=== PATIENT | female | born 1935 | race Caucasian/White ===

== ENCOUNTER 2018-01-21 22:30 | Inpatient (IN) ==
[2018-01-21] MEDS ORDERED: ONDANSETRON 4 MG/2 ML VIAL ONE (23:08)
[2018-01-21] MEDS ORDERED: ONDANSETRON 4 MG/2 ML VIAL IV STA (23:17)
[2018-01-21] MEDS ORDERED: SODIUM CHLORIDE 0.9% 1,000 ML IV STA (23:54)
[2018-01-21] MEDS ORDERED: PANTOPRAZOLE 40 MG VIAL IV STA (23:55)
[2018-01-22 00:15] LABS: Partial Thromboplastin Time 32.9 SECS (0-40)
[2018-01-22 00:17] LABS: Alanine Aminotransferase 18 U/L (13-56); Albumin 2.8 G/DL (3.4-5.0); Alkaline Phosphatase 51 U/L (45-117); Aspartate Amino Transferase 13 U/L (0-37); Bilirubin,Total < 0.39 MG/DL (0.2-1.0); Blood Urea Nitrogen 102 MG/DL (7-18); Glucose 214 MG/DL (74-106); Osmolality,Calculated 320.1 MOS/KG (273-304); Potassium 4.7 MMOL/L (3.5-5.1); Sodium 142 MMOL/L (136-145); Total Protein 6.3 G/DL (6.4-8.3)
[2018-01-22 00:20] LABS: INR 3.4
[2018-01-22 00:21] LABS: PT Patient Result 33.9 SECS
[2018-01-22 00:58] LABS: Basophils # 0.1 10*3/uL (0.0-0.2); Basophils % 0.6 % (0.0-0.8); Eosinophils # 0.1 10*3/uL (0.0-0.87); Eosinophils % 0.4 % (0.00-10.9); Hematocrit 27.1 VOL% (35.7-47.0); Hemoglobin 9.5 GM/DL (12.0-16.0); Immature Granulocytes % 0.7 %; Immature Granulocytes Absolute 0.14 #; Lymphocytes # 6.1 10*3/uL (1.4-4.0); Lymphocytes % 32.2 % (21.3-54.2); Mean Corpuscular HGB Conc 35.1 GM/DL (32-36); Mean Corpuscular Hemoglobin 35 PG (27-34); Mean Corpuscular Volume 101.1 FL (87-102); Mean Platelet Volume 12.8 FL (9.6-12.0); Monocytes # 1.6 10*3/uL (0.11-0.8); Monocytes % 8.3 % (1.7-12.7); Neutrophils % 57.8 % (38.7-73.9); Platelet Count 225 T/CUMM (130-400); Red Blood Count 2.68 MC/CUMM (3.8-5.5)
[2018-01-22 01:51] LABS: Apearance,Urine Slightly Hazy (Clear); Bacteria,Urine Moderate /HPF (Few); Bilirubin,Urine Negative (Negative); Blood, Urine Small mg/dL (Negative); Glucose,Urine (UA) Negative (Negative); Ketones,Urine Negative (Negative); Mucus,Urine Occasional /LPF (Occasional); Nitrite,Urine Negative (Negative); Protein,Urine Negative; RBC,Urine 2 /HPF (0-4); Squamous Epithelial Cell,Urine Occasional /HPF (0-10); Urine Color Yellow (Yellow); Urine Specific Gravity 1.012 (1.001-1.035); Urine Urobilinogen < 2.0 EU/DL (0.2-1.0); WBC,Urine 33 /HPF (0-6)
[2018-01-22] MEDS ORDERED: ACETAMINOPHEN 325 MG TABLET PO PRN (03:18)
[2018-01-22] MEDS ORDERED: ONDANSETRON 4 MG/2 ML VIAL IV PRN (03:18)
[2018-01-22] MEDS ORDERED: ALBUTEROL 2.5 MG/3 ML NEB RESP TX PRN (03:18)
[2018-01-22] MEDS ORDERED: INSULIN ASPART PROTAMINE/ASPART 70/30 100 UNIT/ML SUBCUT PRN (03:24)
[2018-01-22] MEDS ORDERED: DEXTROSE 50% 25 GM/50 ML VIAL IV PRN (03:26)
[2018-01-22] MEDS ORDERED: GLUCAGON 1 MG VIAL IM PRN (04:20)
[2018-01-22] MEDS: PANTOPRAZOLE INJ 200 MG in SODIUM CHLORIDE 0.9% 250 ML IV SCH (04:33)
[2018-01-22] MEDS: cefTRIAXone 1,000 MG in SYRINGE 1 EACH IV SCH (04:43)
[2018-01-22 04:58] LABS: Basophils # 0.1 10*3/uL (0.0-0.2); Basophils % 0.4 % (0.0-0.8); Hemoglobin 8.6 GM/DL (12.0-16.0); Immature Granulocytes % 0.6 %; Immature Granulocytes Absolute 0.09 #; Lymphocytes # 2.7 10*3/uL (1.4-4.0); Lymphocytes % 18.2 % (21.3-54.2); Mean Corpuscular HGB Conc 34.4 GM/DL (32-36); Mean Corpuscular Hemoglobin 35 PG (27-34); Mean Corpuscular Volume 100.4 FL (87-102); Mean Platelet Volume 11.8 FL (9.6-12.0); Monocytes # 0.7 10*3/uL (0.11-0.8); Monocytes % 4.8 % (1.7-12.7); Neutrophils # 11.2 10*3/uL (1.4-7.4); Platelet Count 196 T/CUMM (130-400); Red Blood Count 2.49 MC/CUMM (3.8-5.5); White Blood Count 14.7 T/CUMM (4-12)
[2018-01-22 05:10] LABS: Calcium 8.9 MG/DL (8.5-10.1); Osmolality,Calculated 325.8 MOS/KG (273-304)
[2018-01-22 05:16] LABS: Lactic Acid 2.1 MMOL/L (0.4-2.0)
[2018-01-22] MEDS: INSULIN LISPRO 100 UNIT/ML SUBCUT SCH ×3 (06:15→19:01)
[2018-01-22 09:35] LABS: Hematocrit 23.7 VOL% (35.7-47.0); Hemoglobin 8.2 GM/DL (12.0-16.0)
[2018-01-22 13:01] LABS: Hematocrit 22.5 VOL% (35.7-47.0); Hemoglobin 7.7 GM/DL (12.0-16.0)
[2018-01-22 13:12] LABS: INR 2.9
[2018-01-22 13:14] LABS: PT Patient Result 29.1 SECS
[2018-01-22] MEDS: LISINOPRIL 5 MG TABLET PO SCH (19:02)
[2018-01-22] MEDS: INSULIN ASPART PROTAMINE/ASPART 70/30 100 UNIT/ML SUBCUT SCH ×2 (19:03→19:04)
[2018-01-22] MEDS ORDERED: ATORVASTATIN 20 MG TABLET PO SCH (21:00)
[2018-01-22] MEDS ORDERED: MAGNESIUM OXIDE 400 MG TABLET PO SCH (21:00)
[2018-01-22] MEDS ORDERED: AMITRIPTYLINE 25 MG TABLET PO SCH (21:00)
[2018-01-22] MEDS ORDERED: INSULIN GLARGINE 100 UNIT/ML SUBCUT SCH (21:00)
[2018-01-22] MEDS ORDERED: MULTIVITAMIN (CENTRUM) TABLET PO SCH (21:00)
[2018-01-22 22:00] LABS: Hematocrit 21.6 VOL% (35.7-47.0); Hemoglobin 7.5 GM/DL (12.0-16.0)
[2018-01-23] MEDS: INSULIN LISPRO 100 UNIT/ML SUBCUT SCH ×5 (00:02→20:24)
[2018-01-23 05:08] LABS: Basophils # 0.1 10*3/uL (0.0-0.2); Basophils % 0.6 % (0.0-0.8); Eosinophils # 0.4 10*3/uL (0.0-0.87); Hematocrit 21.1 VOL% (35.7-47.0); Hemoglobin 7.2 GM/DL (12.0-16.0); Immature Granulocytes % 0.5 %; Immature Granulocytes Absolute 0.07 #; Lymphocytes # 3.5 10*3/uL (1.4-4.0); Lymphocytes % 25.1 % (21.3-54.2); Mean Corpuscular HGB Conc 34.1 GM/DL (32-36); Mean Corpuscular Hemoglobin 35 PG (27-34); Mean Corpuscular Volume 102.4 FL (87-102); Mean Platelet Volume 12.1 FL (9.6-12.0); Monocytes # 1.3 10*3/uL (0.11-0.8); Monocytes % 9.5 % (1.7-12.7); Neutrophils # 8.5 10*3/uL (1.4-7.4); Neutrophils % 61.3 % (38.7-73.9); Platelet Count 166 T/CUMM (130-400); Red Blood Count 2.06 MC/CUMM (3.8-5.5); Red Cell Distribution Width 13.3 % (9.3-17.3); White Blood Count 13.8 T/CUMM (4-12)
[2018-01-23] MEDS: cefTRIAXone 1,000 MG in SYRINGE 1 EACH IV SCH (05:11)
[2018-01-23] MEDS: PANTOPRAZOLE INJ 200 MG in SODIUM CHLORIDE 0.9% 250 ML IV SCH ×2 (05:14→16:42)
[2018-01-23 05:16] LABS: Osmolality,Calculated 310.6 MOS/KG (273-304); Potassium 4.2 MMOL/L (3.5-5.1)
[2018-01-23 05:17] LABS: INR 2.8
[2018-01-23 05:19] LABS: PT Patient Result 28.1 SECS
[2018-01-23] MEDS ORDERED: GLUCAGON 1 MG VIAL IM PRN ×2 (08:14→14:58)
[2018-01-23] MEDS ORDERED: DEXTROSE 50% 25 GM/50 ML VIAL IV PRN ×2 (08:14→14:58)
[2018-01-23] MEDS: INSULIN ASPART PROTAMINE/ASPART 70/30 100 UNIT/ML SUBCUT SCH ×2 (09:34→16:56)
[2018-01-23] MEDS: LISINOPRIL 5 MG TABLET PO SCH (09:34)
[2018-01-23] MEDS ORDERED: SODIUM CHLORIDE 0.9% 1,000 ML IV PRN (10:13)
[2018-01-23] MEDS ORDERED: ALBUTEROL 2.5 MG/3 ML NEB RESP TX PRN (14:48)
[2018-01-23] MEDS ORDERED: ACETAMINOPHEN 325 MG TABLET PO PRN (14:49)
[2018-01-23] MEDS ORDERED: ONDANSETRON 4 MG/2 ML VIAL IV PRN (14:55)
[2018-01-23] MEDS: MAGNESIUM OXIDE 400 MG TABLET PO SCH (20:23)
[2018-01-23] MEDS: ATORVASTATIN 10 MG TABLET PO SCH (20:23)
[2018-01-23] MEDS: INSULIN GLARGINE 100 UNIT/ML SUBCUT SCH (20:23)
[2018-01-23] MEDS: AMITRIPTYLINE 25 MG TABLET PO SCH (20:23)
[2018-01-24] MEDS: cefTRIAXone 1,000 MG in SYRINGE 1 EACH IV SCH (03:35)
[2018-01-24 03:48] LABS: Basophils # 0.1 10*3/uL (0.0-0.2); Basophils % 0.7 % (0.0-0.8); Eosinophils # 0.4 10*3/uL (0.0-0.87); Eosinophils % 3.5 % (0.00-10.9); Hematocrit 31.1 VOL% (35.7-47.0); Hemoglobin 10.4 GM/DL (12.0-16.0); Immature Granulocytes % 0.5 %; Immature Granulocytes Absolute 0.06 #; Lymphocytes # 2.3 10*3/uL (1.4-4.0); Lymphocytes % 18.7 % (21.3-54.2); Mean Corpuscular HGB Conc 33.4 GM/DL (32-36); Mean Corpuscular Hemoglobin 33 PG (27-34); Monocytes # 1.2 10*3/uL (0.11-0.8); Monocytes % 10.1 % (1.7-12.7); Neutrophils # 8.1 10*3/uL (1.4-7.4); Neutrophils % 66.5 % (38.7-73.9); Platelet Count 153 T/CUMM (130-400); Red Blood Count 3.11 MC/CUMM (3.8-5.5); Red Cell Distribution Width 15.5 % (9.3-17.3); White Blood Count 12.2 T/CUMM (4-12)
[2018-01-24 03:50] LABS: Hematocrit 30.3 VOL% (35.7-47.0); Hemoglobin 10.5 GM/DL (12.0-16.0)
[2018-01-24 03:51] LABS: INR 1.9; PT Patient Result 19.4 SECS
[2018-01-24 04:01] LABS: Calcium 8.3 MG/DL (8.5-10.1); Osmolality,Calculated 302.8 MOS/KG (273-304); Potassium 4.4 MMOL/L (3.5-5.1)
[2018-01-24] MEDS: INSULIN LISPRO 100 UNIT/ML SUBCUT SCH ×4 (08:10→20:17)
[2018-01-24] MEDS: INSULIN ASPART PROTAMINE/ASPART 70/30 100 UNIT/ML SUBCUT SCH ×2 (09:22→17:35)
[2018-01-24] MEDS: LISINOPRIL 5 MG TABLET PO SCH (09:22)
[2018-01-24] MEDS: MULTIVITAMIN (CENTRUM) TABLET PO SCH (09:23)
[2018-01-24] MEDS: PANTOPRAZOLE INJ 200 MG in SODIUM CHLORIDE 0.9% 250 ML IV SCH (17:48)
[2018-01-24] MEDS: INSULIN GLARGINE 100 UNIT/ML SUBCUT SCH (20:18)
[2018-01-24] MEDS: MAGNESIUM OXIDE 400 MG TABLET PO SCH (20:19)
[2018-01-24] MEDS: AMITRIPTYLINE 25 MG TABLET PO SCH (20:19)
[2018-01-24] MEDS: ATORVASTATIN 10 MG TABLET PO SCH (20:19)
[2018-01-25] MEDS: cefTRIAXone 1,000 MG in SYRINGE 1 EACH IV SCH (03:35)
[2018-01-25 03:43] LABS: Basophils # 0.1 10*3/uL (0.0-0.2); Basophils % 0.6 % (0.0-0.8); Eosinophils # 0.4 10*3/uL (0.0-0.87); Eosinophils % 4.5 % (0.00-10.9); Hematocrit 29.3 VOL% (35.7-47.0); Hemoglobin 9.8 GM/DL (12.0-16.0); Immature Granulocytes % 0.5 %; Immature Granulocytes Absolute 0.05 #; Lymphocytes # 2.4 10*3/uL (1.4-4.0); Lymphocytes % 24.3 % (21.3-54.2); Mean Corpuscular HGB Conc 33.4 GM/DL (32-36); Mean Corpuscular Hemoglobin 33 PG (27-34); Mean Platelet Volume 12.3 FL (9.6-12.0); Monocytes # 1.3 10*3/uL (0.11-0.8); Monocytes % 13.4 % (1.7-12.7); Neutrophils # 5.5 10*3/uL (1.4-7.4); Neutrophils % 56.7 % (38.7-73.9); Platelet Count 149 T/CUMM (130-400); Red Blood Count 2.93 MC/CUMM (3.8-5.5); Red Cell Distribution Width 15.4 % (9.3-17.3); White Blood Count 9.7 T/CUMM (4-12)
[2018-01-25 04:08] LABS: Calcium 8.2 MG/DL (8.5-10.1); Potassium 4.1 MMOL/L (3.5-5.1)
[2018-01-25 08:32] LABS: INR 1.2; PT Patient Result 12.7 SECS
[2018-01-25] MEDS: LISINOPRIL 5 MG TABLET PO SCH (09:20)
[2018-01-25] MEDS: SODIUM CHLORIDE 0.9% 1,000 ML IV SCH (09:20)
[2018-01-25] MEDS: INSULIN LISPRO 100 UNIT/ML SUBCUT SCH ×4 (09:21→20:41)
[2018-01-25] MEDS: INSULIN ASPART PROTAMINE/ASPART 70/30 100 UNIT/ML SUBCUT SCH ×2 (09:21→17:03)
[2018-01-25] MEDS: MULTIVITAMIN (CENTRUM) TABLET PO SCH (09:21)
[2018-01-25] MEDS: AMITRIPTYLINE 25 MG TABLET PO SCH (20:01)
[2018-01-25] MEDS: INSULIN GLARGINE 100 UNIT/ML SUBCUT SCH (20:01)
[2018-01-25] MEDS: ATORVASTATIN 10 MG TABLET PO SCH (20:01)
[2018-01-25] MEDS: MAGNESIUM OXIDE 400 MG TABLET PO SCH (20:01)
[2018-01-25] MEDS: PANTOPRAZOLE 40 MG TABLET PO SCH (20:41)
[2018-01-25] MEDS ORDERED: PANTOPRAZOLE 40 MG VIAL IV SCH (21:00)
[2018-01-26] MEDS: cefTRIAXone 1,000 MG in SYRINGE 1 EACH IV SCH (03:18)
[2018-01-26 07:22] LABS: Basophils # 0.1 10*3/uL (0.0-0.2); Basophils % 0.7 % (0.0-0.8); Eosinophils # 0.4 10*3/uL (0.0-0.87); Eosinophils % 3.8 % (0.00-10.9); Hematocrit 27.1 VOL% (35.7-47.0); Hemoglobin 9.6 GM/DL (12.0-16.0); Immature Granulocytes % 0.5 %; Immature Granulocytes Absolute 0.05 #; Lymphocytes # 2.3 10*3/uL (1.4-4.0); Lymphocytes % 21.8 % (21.3-54.2); Mean Corpuscular HGB Conc 35.4 GM/DL (32-36); Mean Corpuscular Hemoglobin 35 PG (27-34); Mean Corpuscular Volume 97.5 FL (87-102); Mean Platelet Volume 12.5 FL (9.6-12.0); Monocytes # 1.5 10*3/uL (0.11-0.8); Monocytes % 14.1 % (1.7-12.7); Neutrophils # 6.2 10*3/uL (1.4-7.4); Neutrophils % 59.1 % (38.7-73.9); Platelet Count 171 T/CUMM (130-400); Red Blood Count 2.78 MC/CUMM (3.8-5.5); Red Cell Distribution Width 15.4 % (9.3-17.3); White Blood Count 10.5 T/CUMM (4-12)
[2018-01-26 07:58] LABS: Calcium 7.7 MG/DL (8.5-10.1); Osmolality,Calculated 292.7 MOS/KG (273-304); Potassium 4.1 MMOL/L (3.5-5.1)
[2018-01-26] MEDS ORDERED: PROPOFOL 200 MG/20 ML VIAL IV ONE ×2 (10:00)
[2018-01-26] MEDS ORDERED: LIDOCAINE 2% 5 ML VIAL ONE ×2 (10:00)
[2018-01-26] MEDS: INSULIN LISPRO 100 UNIT/ML SUBCUT SCH ×4 (10:55→22:13)
[2018-01-26] MEDS: INSULIN ASPART PROTAMINE/ASPART 70/30 100 UNIT/ML SUBCUT SCH ×2 (10:55→18:53)
[2018-01-26] MEDS: MULTIVITAMIN (CENTRUM) TABLET PO SCH (10:55)
[2018-01-26] MEDS: PANTOPRAZOLE 40 MG TABLET PO SCH ×2 (10:56→22:12)
[2018-01-26] MEDS: LISINOPRIL 5 MG TABLET PO SCH (10:56)
[2018-01-26] MEDS: SODIUM CHLORIDE 0.9% 1,000 ML IV SCH ×2 (13:31→22:14)
[2018-01-26 17:29] LABS: PT Patient Result 10.7 SECS
[2018-01-26] MEDS: WARFARIN 2.5 MG TABLET PO SCH (19:32)
[2018-01-26] MEDS: ENOXAPARIN 80 MG/0.8 ML SYRINGE SUBCUT SCH (19:32)
[2018-01-26] MEDS ORDERED: PANTOPRAZOLE 40 MG VIAL IV SCH (21:00)
[2018-01-26] MEDS: MAGNESIUM OXIDE 400 MG TABLET PO SCH (22:11)
[2018-01-26] MEDS: ATORVASTATIN 10 MG TABLET PO SCH (22:11)
[2018-01-26] MEDS: AMITRIPTYLINE 25 MG TABLET PO SCH (22:11)
[2018-01-26] MEDS: INSULIN GLARGINE 100 UNIT/ML SUBCUT SCH (22:12)
[2018-01-27] MEDS: cefTRIAXone 1,000 MG in SYRINGE 1 EACH IV SCH (03:41)
[2018-01-27] MEDS: SODIUM CHLORIDE 0.9% 1,000 ML IV SCH ×3 (03:41→23:51)
[2018-01-27 06:35] LABS: INR 1.1; PT Patient Result 11.4 SECS
[2018-01-27] MEDS: INSULIN LISPRO 100 UNIT/ML SUBCUT SCH ×4 (09:08→22:19)
[2018-01-27] MEDS: INSULIN ASPART PROTAMINE/ASPART 70/30 100 UNIT/ML SUBCUT SCH ×2 (09:08→19:01)
[2018-01-27] MEDS: MULTIVITAMIN (CENTRUM) TABLET PO SCH (09:32)
[2018-01-27] MEDS: LISINOPRIL 5 MG TABLET PO SCH (09:32)
[2018-01-27] MEDS: PANTOPRAZOLE 40 MG TABLET PO SCH ×2 (09:32→21:37)
[2018-01-27] MEDS: ENOXAPARIN 80 MG/0.8 ML SYRINGE SUBCUT SCH (18:16)
[2018-01-27] MEDS: WARFARIN 2.5 MG TABLET PO SCH (18:17)
[2018-01-27] MEDS: MAGNESIUM OXIDE 400 MG TABLET PO SCH (21:37)
[2018-01-27] MEDS: AMITRIPTYLINE 25 MG TABLET PO SCH (21:37)
[2018-01-27] MEDS: ATORVASTATIN 10 MG TABLET PO SCH (21:37)
[2018-01-27] MEDS: INSULIN GLARGINE 100 UNIT/ML SUBCUT SCH (21:46)
[2018-01-28] MEDS: cefTRIAXone 1,000 MG in SYRINGE 1 EACH IV SCH (04:51)
[2018-01-28 06:56] LABS: Basophils # 0.1 10*3/uL (0.0-0.2); Basophils % 0.9 % (0.0-0.8); Eosinophils # 0.4 10*3/uL (0.0-0.87); Hemoglobin 8.1 GM/DL (12.0-16.0); Immature Granulocytes % 0.5 %; Immature Granulocytes Absolute 0.03 #; Lymphocytes # 1.6 10*3/uL (1.4-4.0); Lymphocytes % 23.9 % (21.3-54.2); Mean Corpuscular HGB Conc 33.8 GM/DL (32-36); Mean Corpuscular Hemoglobin 34 PG (27-34); Mean Corpuscular Volume 100.8 FL (87-102); Mean Platelet Volume 11.7 FL (9.6-12.0); Monocytes # 0.9 10*3/uL (0.11-0.8); Monocytes % 13.6 % (1.7-12.7); Neutrophils # 3.6 10*3/uL (1.4-7.4); Neutrophils % 55.1 % (38.7-73.9); Platelet Count 162 T/CUMM (130-400); Red Blood Count 2.38 MC/CUMM (3.8-5.5); White Blood Count 6.5 T/CUMM (4-12)
[2018-01-28 07:17] LABS: INR 1.2; PT Patient Result 12.4 SECS
[2018-01-28 07:21] LABS: Calcium 6.6 MG/DL (8.5-10.1); Osmolality,Calculated 301.9 MOS/KG (273-304); Potassium 3.5 MMOL/L (3.5-5.1)
[2018-01-28] MEDS: MULTIVITAMIN (CENTRUM) TABLET PO SCH (09:39)
[2018-01-28] MEDS: LISINOPRIL 5 MG TABLET PO SCH (09:39)
[2018-01-28] MEDS: INSULIN LISPRO 100 UNIT/ML SUBCUT SCH ×4 (09:39→20:08)
[2018-01-28] MEDS: INSULIN ASPART PROTAMINE/ASPART 70/30 100 UNIT/ML SUBCUT SCH ×2 (09:39→18:41)
[2018-01-28] MEDS: PANTOPRAZOLE 40 MG TABLET PO SCH ×2 (09:39→20:10)
[2018-01-28] MEDS: WARFARIN 5 MG TABLET PO SCH (18:41)
[2018-01-28] MEDS: ENOXAPARIN 80 MG/0.8 ML SYRINGE SUBCUT SCH (18:41)
[2018-01-28] MEDS: INSULIN GLARGINE 100 UNIT/ML SUBCUT SCH (20:09)
[2018-01-28] MEDS: MAGNESIUM OXIDE 400 MG TABLET PO SCH (20:09)
[2018-01-28] MEDS: ATORVASTATIN 10 MG TABLET PO SCH (20:09)
[2018-01-28] MEDS: AMITRIPTYLINE 25 MG TABLET PO SCH (20:10)
[2018-01-29] MEDS: cefTRIAXone 1,000 MG in SYRINGE 1 EACH IV SCH (03:38)
[2018-01-29 07:00] LABS: INR 1.1; PT Patient Result 11.2 SECS
[2018-01-29 07:08] LABS: Calcium 7.8 MG/DL (8.5-10.1); Osmolality,Calculated 287.7 MOS/KG (273-304); Potassium 3.9 MMOL/L (3.5-5.1)
[2018-01-29] MEDS: INSULIN LISPRO 100 UNIT/ML SUBCUT SCH ×2 (08:21→11:44)
[2018-01-29] MEDS: INSULIN ASPART PROTAMINE/ASPART 70/30 100 UNIT/ML SUBCUT SCH ×2 (08:22→17:05)
[2018-01-29] MEDS: MULTIVITAMIN (CENTRUM) TABLET PO SCH (09:04)
[2018-01-29] MEDS: LISINOPRIL 5 MG TABLET PO SCH (09:04)
[2018-01-29] MEDS: PANTOPRAZOLE 40 MG TABLET PO SCH ×2 (09:04→20:21)
[2018-01-29] MEDS: CYANOCOBALAMIN 1000 MCG/1 ML VIAL IM SCH (09:04)
[2018-01-29] MEDS ORDERED: INSULIN GLARGINE 100 UNIT/ML SUBCUT SCH (11:41)
[2018-01-29] MEDS ORDERED: DOCUSATE SODIUM 100 MG CAPSULE PO ONE (16:29)
[2018-01-29] MEDS: WARFARIN 5 MG TABLET PO SCH (17:13)
[2018-01-29] MEDS: ENOXAPARIN 80 MG/0.8 ML SYRINGE SUBCUT SCH (17:16)
[2018-01-29] MEDS: MAGNESIUM OXIDE 400 MG TABLET PO SCH (20:21)
[2018-01-29] MEDS: ATORVASTATIN 10 MG TABLET PO SCH (20:21)
[2018-01-29] MEDS: AMITRIPTYLINE 25 MG TABLET PO SCH (20:21)
[2018-01-30] MEDS: cefTRIAXone 1,000 MG in SYRINGE 1 EACH IV SCH (04:09)
[2018-01-30 06:30] LABS: INR 1.2; PT Patient Result 12.3 SECS
[2018-01-30 08:58] LABS: Hematocrit 28.7 VOL% (35.7-47.0); Hemoglobin 9.9 GM/DL (12.0-16.0)
[2018-01-30] MEDS ORDERED: DOCUSATE SODIUM 100 MG CAPSULE PO PRN (09:00)
[2018-01-30] MEDS: CYANOCOBALAMIN 1000 MCG/1 ML VIAL IM SCH (09:08)
[2018-01-30] MEDS: INSULIN ASPART PROTAMINE/ASPART 70/30 100 UNIT/ML SUBCUT SCH (09:08)
[2018-01-30] MEDS: PANTOPRAZOLE 40 MG TABLET PO SCH (09:08)
[2018-01-30] MEDS: LISINOPRIL 5 MG TABLET PO SCH (09:08)
[2018-01-30] MEDS: MULTIVITAMIN (CENTRUM) TABLET PO SCH (09:08)
[2018-01-30] MEDS: ENOXAPARIN 80 MG/0.8 ML SYRINGE SUBCUT SCH (09:13)
[2018-01-30 11:46] VITALS: BP 146/70
[2018-02-06 13:16] LABS: DRVVT Screen Ratio 1.1 ratio (0.0 - 1.1); Fibrinogen, P 550 mg/dL (200 - 430); INR 1.3; Protein C Activity Plasma 77 % (70 - 150); Thrombin Time (Bovine), P 20 sec (15 - 23)
== END 2018-01-30 17:01 | disposition home health service (06) | DRG 872 ==
LOC: N.ED 22:30 → SUATTDRO 01-22 03:09 → N.EDINP 01-22 03:09 → N.CC 01-22 03:40 → N.5E 01-23 19:50
PROVIDERS: ADMIT Internal Medicine; ATTEND Internal Medicine

== ENCOUNTER 2021-09-24 09:07 | Inpatient (IN) ==
[2021-09-24 10:18] LABS: Basophils % 0.2 % (0.0-0.8); Eosinophils % 0.1 % (0.00-10.9); Hematocrit 20.3 VOL% (35.7-47.0); Immature Granulocytes % 0.7 %; Immature Granulocytes Absolute 0.09 #; Lymphocytes # 1.5 10*3/uL (1.4-4.0); Lymphocytes % 10.6 % (21.3-54.2); Mean Corpuscular HGB Conc 31.5 GM/DL (32-36); Mean Platelet Volume 10.9 FL (9.6-12.0); Monocytes % 3.7 % (1.7-12.7); Neutrophils % 84.7 % (38.7-73.9); Platelet Count 208 T/CUMM (130-400); Red Blood Count 2.03 MC/CUMM (3.8-5.5); Red Cell Distribution Width 14.6 % (9.3-17.3); White Blood Count 13.7 T/CUMM (4-12)
[2021-09-24 10:27] LABS: INR 1.9; PT Patient Result 19.8 SECS (10.5-12.0)
[2021-09-24 10:31] LABS: Hemoglobin 6.4 GM/DL (12.0-16.0)
[2021-09-24 10:41] LABS: Alanine Aminotransferase 25 U/L (13-56); Albumin 2.6 G/DL (3.4-5.0); Alkaline Phosphatase 54 U/L (45-117); Aspartate Amino Transferase 24 U/L (0-37); Bilirubin,Total < 0.39 MG/DL (0.20-1.00); Blood Urea Nitrogen 115 MG/DL (7-18); Calcium 9.7 MG/DL (8.5-10.1); Carbon Dioxide 18 MMOL/L (21-32); Estimated Glom Filtration Rate 6 ML/MIN; Glucose 201 MG/DL (74-106); Osmolality,Calculated 308.4 MOS/KG (273-304); Potassium 5.2 MMOL/L (3.5-5.1); Sodium 133 MMOL/L (136-145)
[2021-09-24] MEDS ORDERED: ONDANSETRON 4 MG/2 ML VIAL IV PRN (10:56)
[2021-09-24] MEDS ORDERED: ACETAMINOPHEN 325 MG TABLET PO PRN (10:56)
[2021-09-24] MEDS ORDERED: SODIUM CHLORIDE 0.9% 1,000 ML IV PRN (10:59)
[2021-09-24] MEDS: SODIUM CHLORIDE 0.9% 1,000 ML IV SCH (11:14)
[2021-09-24 13:43] LABS: RBC,Urine 272 /HPF (0-4)
[2021-09-24 13:45] LABS: Protein,Urine >=300 MG/DL; Urine Appearance Slightly Cloudy (Clear); Urine Color Light Yellow (Yellow)
[2021-09-24] MEDS ORDERED: GLUCAGON 1 MG VIAL IM PRN (13:45)
[2021-09-24 13:46] LABS: Bilirubin,Urine Negative (Negative); Blood, Urine Large mg/dL (Negative); Glucose,Urine (UA) 100 mg/dL (Negative); Ketones,Urine Negative (Negative); Nitrite,Urine Negative (Negative); Urine Urobilinogen 0.2 EU/DL (<2.0)
[2021-09-24] MEDS ORDERED: DEXTROSE 10% 250 ML BAG IV PRN (14:10)
[2021-09-24] MEDS ORDERED: ENOXAPARIN 30 MG/0.3 ML SYRINGE SUBCUT SCH (15:00)
[2021-09-24] MEDS: cefTRIAXone 1,000 MG in SODIUM CHLORIDE 0.9% 100 ML IV SCH (16:08)
[2021-09-24 16:16] LABS: % Iron Saturation 15.1 % (18-50); Ferritin 61.5 ng/mL (8-252)
[2021-09-24] MEDS: INSULIN LISPRO 100 UNIT/ML SUBCUT SCH ×2 (17:58→23:12)
[2021-09-24] MEDS: DOCUSATE SODIUM 100 MG CAPSULE PO SCH (23:09)
[2021-09-25] MEDS: SODIUM CHLORIDE 0.9% 1,000 ML IV SCH ×2 (01:35→17:37)
[2021-09-25 05:56] LABS: Basophils # 0.1 10*3/uL (0.0-0.2); Basophils % 0.6 % (0.0-0.8); Eosinophils # 0.2 10*3/uL (0.0-0.87); Eosinophils % 2.1 % (0.00-10.9); Hematocrit 34.2 VOL% (35.7-47.0); Immature Granulocytes % 0.4 %; Immature Granulocytes Absolute 0.04 #; Lymphocytes # 3.2 10*3/uL (1.4-4.0); Lymphocytes % 30.2 % (21.3-54.2); Mean Corpuscular HGB Conc 32.2 GM/DL (32-36); Mean Corpuscular Volume 94.2 FL (87-102); Mean Platelet Volume 10.8 FL (9.6-12.0); Monocytes % 10.5 % (1.7-12.7); Neutrophils % 56.2 % (38.7-73.9); Red Cell Distribution Width 16.3 % (9.3-17.3); White Blood Count 10.5 T/CUMM (4-12)
[2021-09-25 06:04] LABS: INR 2.1
[2021-09-25 06:09] LABS: Platelet Count 150 T/CUMM (130-400); Red Blood Count 3.63 MC/CUMM (3.8-5.5)
[2021-09-25 06:26] LABS: Alanine Aminotransferase 21 U/L (13-56); Albumin 2.1 G/DL (3.4-5.0); Alkaline Phosphatase 45 U/L (45-117); Aspartate Amino Transferase 23 U/L (0-37); Bilirubin,Total < 0.39 MG/DL (0.20-1.00); Blood Urea Nitrogen 101 MG/DL (7-18); Calcium 8.8 MG/DL (8.5-10.1); Carbon Dioxide 16 MMOL/L (21-32); Estimated Glom Filtration Rate 8 ML/MIN; Glucose 134 MG/DL (74-106); Potassium 4.4 MMOL/L (3.5-5.1); Sodium 136 MMOL/L (136-145)
[2021-09-25] MEDS: PANTOPRAZOLE 40 MG VIAL IV SCH (08:00)
[2021-09-25] MEDS: INSULIN LISPRO 100 UNIT/ML SUBCUT SCH ×4 (08:03→21:11)
[2021-09-25] MEDS: sitaGLIPtin 25 MG TABLET PO SCH (11:57)
[2021-09-25] MEDS: DOCUSATE SODIUM 100 MG CAPSULE PO SCH ×2 (11:57→21:10)
[2021-09-25] MEDS: amLODIPine 5 MG TABLET PO SCH (11:57)
[2021-09-25] MEDS: DONEPEZIL 10 MG TABLET PO SCH (11:57)
[2021-09-25] MEDS: LACTATED RINGERS 1,000 ML IV SCH (13:00)
[2021-09-25] MEDS ORDERED: LIDOCAINE 2% 5 ML VIAL ONE (14:09)
[2021-09-25] MEDS ORDERED: propofoL 200 MG/20 ML VIAL IV ONE (14:09)
[2021-09-25] MEDS: cefTRIAXone 1,000 MG in SODIUM CHLORIDE 0.9% 100 ML IV SCH (17:37)
[2021-09-26] MEDS: SODIUM CHLORIDE 0.9% 1,000 ML IV SCH (06:04)
[2021-09-26 06:25] LABS: Basophils # 0.1 10*3/uL (0.0-0.2); Basophils % 0.7 % (0.0-0.8); Eosinophils # 0.4 10*3/uL (0.0-0.87); Eosinophils % 3.6 % (0.00-10.9); Hematocrit 37.1 VOL% (35.7-47.0); Hemoglobin 12.1 GM/DL (12.0-16.0); Immature Granulocytes % 0.4 %; Lymphocytes # 3.5 10*3/uL (1.4-4.0); Lymphocytes % 34.9 % (21.3-54.2); Mean Corpuscular HGB Conc 32.6 GM/DL (32-36); Mean Corpuscular Volume 94.2 FL (87-102); Mean Platelet Volume 10.7 FL (9.6-12.0); Monocytes % 11.4 % (1.7-12.7); Platelet Count 164 T/CUMM (130-400); Red Blood Count 3.94 MC/CUMM (3.8-5.5); Red Cell Distribution Width 16.4 % (9.3-17.3); White Blood Count 10.2 T/CUMM (4-12)
[2021-09-26 06:26] LABS: Immature Granulocytes Absolute 0.04 #
[2021-09-26 06:55] LABS: Calcium 8.3 MG/DL (8.5-10.1); Osmolality,Calculated 314.8 MOS/KG (273-304); Potassium 4.2 MMOL/L (3.5-5.1)
[2021-09-26] MEDS: amLODIPine 5 MG TABLET PO SCH (09:17)
[2021-09-26] MEDS: DONEPEZIL 10 MG TABLET PO SCH (09:17)
[2021-09-26] MEDS: sitaGLIPtin 25 MG TABLET PO SCH (09:18)
[2021-09-26] MEDS: DOCUSATE SODIUM 100 MG CAPSULE PO SCH (09:18)
[2021-09-26] MEDS: PANTOPRAZOLE 40 MG VIAL IV SCH (09:18)
[2021-09-26] MEDS: INSULIN LISPRO 100 UNIT/ML SUBCUT SCH ×2 (09:19→12:55)
[2021-09-26] MEDS: LACTATED RINGERS 1,000 ML IV SCH (11:40)
[2021-09-26 12:12] VITALS: BP 141/67
== END 2021-09-26 14:46 | disposition home health service (06) | DRG 813 ==
LOC: N.ED 09:07 → N.EDINP 10:56 → N.3E 21:15
PROVIDERS: ADMIT Family Medicine; ATTEND Family Medicine

== ENCOUNTER 2021-10-01 00:03 | Inpatient (IN) ==
[2021-10-01 00:37] LABS: INR 1.8; PT Patient Result 19.1 SECS (10.5-12.0); Partial Thromboplastin Time 33.1 SECS (23.8-32.1)
[2021-10-01 00:52] LABS: Basophils # 0.1 10*3/uL (0.0-0.2); Basophils % 0.7 % (0.0-0.8); Eosinophils # 0.2 10*3/uL (0.0-0.87); Eosinophils % 1.9 % (0.00-10.9); Hemoglobin 10.9 GM/DL (12.0-16.0); Immature Granulocytes % 0.6 %; Immature Granulocytes Absolute 0.08 #; Lymphocytes # 2.6 10*3/uL (1.4-4.0); Lymphocytes % 20.3 % (21.3-54.2); Mean Corpuscular HGB Conc 32.1 GM/DL (32-36); Mean Corpuscular Volume 94.4 FL (87-102); Monocytes % 9.7 % (1.7-12.7); Neutrophils % 66.8 % (38.7-73.9); Platelet Count 162 T/CUMM (130-400); Red Cell Distribution Width 15.5 % (9.3-17.3); White Blood Count 12.8 T/CUMM (4-12)
[2021-10-01 01:55] LABS: Mucus,Urine Occasional /LPF (Occasional); RBC,Urine 218 /HPF (0-4); Squamous Epithelial Cell,Urine Occasional /HPF (0-10)
[2021-10-01 01:58] LABS: Alanine Aminotransferase 23 U/L (13-56); Albumin 2.5 G/DL (3.4-5.0); Alkaline Phosphatase 49 U/L (45-117); Aspartate Amino Transferase 23 U/L (0-37); Bilirubin,Total < 0.39 MG/DL (0.20-1.00); Blood Urea Nitrogen 116 MG/DL (7-18); Calcium 8.1 MG/DL (8.5-10.1); Carbon Dioxide 14 MMOL/L (21-32); Estimated Glom Filtration Rate 8 ML/MIN; Glucose 200 MG/DL (74-106); Osmolality,Calculated 312.1 MOS/KG (273-304); Potassium 4.6 MMOL/L (3.5-5.1); Sodium 135 MMOL/L (136-145); Total Protein 6.7 G/DL (6.4-8.2)
[2021-10-01 01:59] LABS: Bilirubin,Urine Negative (Negative); Blood, Urine Large mg/dL (Negative); Glucose,Urine (UA) Negative (Negative); Ketones,Urine Negative (Negative); Nitrite,Urine Negative (Negative); Protein,Urine 3+ mg/dL (Negative); Urine Appearance Clear (Clear); Urine Color Yellow (Yellow); Urine Specific Gravity 1.025 (1.001-1.035); Urine Urobilinogen 0.2 eU/dL (<2.0); Urine pH 5.5 (4.5-8.0)
[2021-10-01] MEDS ORDERED: PIPERACILLIN/TAZOBACTAM 3,375 MG in SODIUM CHLORIDE 0.9% 100 ML IV STA (02:18)
[2021-10-01] MEDS ORDERED: FUROSEMIDE 40 MG/4 ML VIAL IV STA (02:29)
[2021-10-01] MEDS ORDERED: ONDANSETRON 4 MG/2 ML VIAL IV PRN (02:41)
[2021-10-01] MEDS ORDERED: ACETAMINOPHEN 325 MG TABLET PO PRN (02:41)
[2021-10-01 03:01] LABS: ABG Base Excess -15.2 MMOL/L (-2.5-2.5); ABG PH 7.222 (7.35-7.45); ABG TCO2 10.5 MMOL/L (23-27)
[2021-10-01 04:13] LABS: Alanine Aminotransferase 22 U/L (13-56); Albumin 2.5 G/DL (3.4-5.0); Alkaline Phosphatase 51 U/L (45-117); Aspartate Amino Transferase 21 U/L (0-37); Bilirubin,Total < 0.39 MG/DL (0.20-1.00); Blood Urea Nitrogen 115 MG/DL (7-18); Calcium 7.8 MG/DL (8.5-10.1); Carbon Dioxide 14 MMOL/L (21-32); Estimated Glom Filtration Rate 8 ML/MIN; Glucose 211 MG/DL (74-106); Sodium 136 MMOL/L (136-145); Total Protein 5.8 G/DL (6.4-8.2)
[2021-10-01 08:44] LABS: Basophils # 0.1 10*3/uL (0.0-0.2); Basophils % 0.5 % (0.0-0.8); Eosinophils # 0.1 10*3/uL (0.0-0.87); Eosinophils % 0.6 % (0.00-10.9); Hematocrit 34.4 VOL% (35.7-47.0); Hemoglobin 11.1 GM/DL (12.0-16.0); Immature Granulocytes % 0.6 %; Immature Granulocytes Absolute 0.08 #; Lymphocytes # 2.2 10*3/uL (1.4-4.0); Mean Corpuscular HGB Conc 32.3 GM/DL (32-36); Mean Corpuscular Volume 94.2 FL (87-102); Mean Platelet Volume 10.8 FL (9.6-12.0); Neutrophils % 72.3 % (38.7-73.9); Platelet Count 151 T/CUMM (130-400); Red Blood Count 3.65 MC/CUMM (3.8-5.5); Red Cell Distribution Width 15.8 % (9.3-17.3); White Blood Count 12.7 T/CUMM (4-12)
[2021-10-01 08:52] LABS: PT Patient Result 20.9 SECS (10.5-12.0); Partial Thromboplastin Time 41.5 SECS (23.8-32.1)
[2021-10-01] MEDS ORDERED: GLUCAGON 1 MG VIAL IM PRN (09:12)
[2021-10-01] MEDS ORDERED: MAGNESIUM SULF RIDER 4 GM/100 ML PREMIX IV PRN (09:12)
[2021-10-01] MEDS ORDERED: POTASSIUM CHLORIDE RIDER 10 MEQ/100 ML PREMIX IV PRN (09:12)
[2021-10-01] MEDS ORDERED: MAGNESIUM SULF RIDER 2 GM/50 ML PREMIX IV PRN (09:12)
[2021-10-01] MEDS ORDERED: DEXTROSE 10% 250 ML BAG IV PRN (09:16)
[2021-10-01] MEDS ORDERED: methylPREDNISolone SOD SUC 40 MG/1 ML VIAL IV SCH (09:30)
[2021-10-01 10:24] LABS: Glucose,Urine (UA) Negative (Negative); Ketones,Urine Negative (Negative); Nitrite,Urine Negative (Negative); Protein,Urine 2+ mg/dL (Negative); RBC,Urine 42 /HPF (0-4); Squamous Epithelial Cell,Urine Occasional /HPF (0-10); Urine Appearance Slightly Hazy (Clear); Urine Color Light Yellow (Yellow); Urine Specific Gravity 1.015 (1.001-1.035); Urine pH 5.5 (4.5-8.0)
[2021-10-01 10:25] LABS: Bilirubin,Urine Negative (Negative); Blood, Urine Moderate mg/dL (Negative); Urine Urobilinogen 0.2 eU/dL (<2.0)
[2021-10-01] MEDS: ALBUTEROL/IPRATROPIUM 3 ML NEB RESP TX SCH ×5 (10:31→23:55)
[2021-10-01] MEDS ORDERED: PIPERACILLIN/TAZOBACTAM 3,375 MG in SODIUM CHLORIDE 0.9% 100 ML IV SCH (11:00)
[2021-10-01] MEDS: AMOXICILLIN 500 MG CAPSULE PO SCH ×2 (11:24→22:22)
[2021-10-01] MEDS: CLARITHROMYCIN 500 MG TABLET PO SCH ×2 (11:24→22:23)
[2021-10-01] MEDS: MEMANTINE 5 MG TABLET PO SCH ×2 (11:24→22:23)
[2021-10-01] MEDS: FUROSEMIDE 40 MG/4 ML VIAL IV SCH (11:29)
[2021-10-01] MEDS: PANTOPRAZOLE 40 MG VIAL IV SCH (11:31)
[2021-10-01] MEDS: WARFARIN 4 MG TABLET PO SCH (19:00)
[2021-10-01] MEDS: MENTHOL/ZINC OXIDE OINT 71 GM JAR TOP SCH (19:01)
[2021-10-01] MEDS: METOPROLOL SUCCINATE XL 50 MG TABLET PO SCH (19:03)
[2021-10-01] MEDS: ROSUVASTATIN 20 MG TABLET PO SCH (22:22)
[2021-10-01] MEDS: INSULIN GLARGINE 100 UNIT/ML SUBCUT SCH (22:24)
[2021-10-02] MEDS: methylPREDNISolone SOD SUC 40 MG/1 ML VIAL IV SCH ×2 (00:49→13:09)
[2021-10-02] MEDS: MENTHOL/ZINC OXIDE OINT 71 GM JAR TOP SCH ×3 (01:47→21:30)
[2021-10-02] MEDS: ALBUTEROL/IPRATROPIUM 3 ML NEB RESP TX SCH ×5 (03:26→23:54)
[2021-10-02 05:49] LABS: Basophils % 0.1 % (0.0-0.8); Hematocrit 32.7 VOL% (35.7-47.0); Hemoglobin 10.9 GM/DL (12.0-16.0); Immature Granulocytes % 0.6 %; Immature Granulocytes Absolute 0.05 #; Lymphocytes # 0.8 10*3/uL (1.4-4.0); Lymphocytes % 10.2 % (21.3-54.2); Mean Corpuscular HGB Conc 33.3 GM/DL (32-36); Mean Corpuscular Volume 92.4 FL (87-102); Mean Platelet Volume 11.1 FL (9.6-12.0); Monocytes % 1.6 % (1.7-12.7); Neutrophils % 87.5 % (38.7-73.9); Platelet Count 154 T/CUMM (130-400); Red Blood Count 3.54 MC/CUMM (3.8-5.5); Red Cell Distribution Width 15.5 % (9.3-17.3)
[2021-10-02 05:59] LABS: INR 2.9; PT Patient Result 30.1 SECS (10.5-12.0)
[2021-10-02 06:14] LABS: Albumin 2.4 G/DL (3.4-5.0); Bilirubin,Total 0.4 MG/DL (0.20-1.00); Osmolality,Calculated 319.1 MOS/KG (273-304); Potassium 4.4 MMOL/L (3.5-5.1)
[2021-10-02] MEDS ORDERED: DEXTROSE 50% 25 GM/50 ML VIAL IV PRN (08:32)
[2021-10-02] MEDS: MEMANTINE 5 MG TABLET PO SCH ×2 (09:39→21:41)
[2021-10-02] MEDS: CLARITHROMYCIN 500 MG TABLET PO SCH ×2 (09:39→21:39)
[2021-10-02] MEDS: AMOXICILLIN 500 MG CAPSULE PO SCH ×2 (09:39→21:40)
[2021-10-02] MEDS: FUROSEMIDE 40 MG/4 ML VIAL IV SCH (09:42)
[2021-10-02] MEDS: PANTOPRAZOLE 40 MG VIAL IV SCH (09:48)
[2021-10-02] MEDS: INSULIN LISPRO 100 UNIT/ML SUBCUT SCH ×4 (09:51→21:45)
[2021-10-02] MEDS ORDERED: INSULIN LISPRO 100 UNIT/ML SUBCUT SCH (11:30)
[2021-10-02] MEDS: METOPROLOL SUCCINATE XL 50 MG TABLET PO SCH (18:14)
[2021-10-02] MEDS: WARFARIN 4 MG TABLET PO SCH (18:14)
[2021-10-02] MEDS: ROSUVASTATIN 20 MG TABLET PO SCH (21:40)
[2021-10-02] MEDS: INSULIN GLARGINE 100 UNIT/ML SUBCUT SCH (21:42)
[2021-10-03] MEDS: methylPREDNISolone SOD SUC 40 MG/1 ML VIAL IV SCH ×2 (00:57→14:33)
[2021-10-03] MEDS: ALBUTEROL/IPRATROPIUM 3 ML NEB RESP TX SCH ×7 (04:03→23:43)
[2021-10-03 04:51] LABS: Basophils % 0.1 % (0.0-0.8); Hemoglobin 10.2 GM/DL (12.0-16.0); Immature Granulocytes % 0.8 %; Immature Granulocytes Absolute 0.14 #; Lymphocytes # 0.8 10*3/uL (1.4-4.0); Lymphocytes % 4.3 % (21.3-54.2); Mean Corpuscular HGB Conc 31.9 GM/DL (32-36); Mean Platelet Volume 11.3 FL (9.6-12.0); Monocytes % 2.5 % (1.7-12.7); Neutrophils % 92.3 % (38.7-73.9); Platelet Count 162 T/CUMM (130-400); Red Blood Count 3.37 MC/CUMM (3.8-5.5); Red Cell Distribution Width 15.8 % (9.3-17.3); White Blood Count 17.9 T/CUMM (4-12)
[2021-10-03 05:07] LABS: Calcium 7.9 MG/DL (8.5-10.1); Potassium 4.3 MMOL/L (3.5-5.1)
[2021-10-03 05:09] LABS: INR 4.1; PT Patient Result 41.5 SECS (10.5-12.0)
[2021-10-03 05:11] LABS: Alanine Aminotransferase 32 U/L (13-56); Albumin 2.2 G/DL (3.4-5.0); Alkaline Phosphatase 43 U/L (45-117); Aspartate Amino Transferase 57 U/L (0-37); Bilirubin,Total < 0.39 MG/DL (0.20-1.00); Blood Urea Nitrogen 124 MG/DL (7-18); Calcium 7.5 MG/DL (8.5-10.1); Carbon Dioxide 13 MMOL/L (21-32); Estimated Glom Filtration Rate 6 ML/MIN; Glucose 224 MG/DL (74-106); Osmolality,Calculated 321.7 MOS/KG (273-304); Potassium 4.2 MMOL/L (3.5-5.1); Sodium 138 MMOL/L (136-145); Total Protein 6.6 G/DL (6.4-8.2)
[2021-10-03 05:15] LABS: Hypochromia Slight; Lymphocytes 5 % (20-55); Microcytosis Slight; Platelet Estimate Adequate; Segmented Neutrophils 93 % (50-85); Total Cells Counted 100
[2021-10-03] MEDS: AMOXICILLIN 500 MG CAPSULE PO SCH ×2 (09:41→21:14)
[2021-10-03] MEDS: MEMANTINE 5 MG TABLET PO SCH ×2 (09:41→21:15)
[2021-10-03] MEDS: CLARITHROMYCIN 500 MG TABLET PO SCH ×2 (09:41→21:14)
[2021-10-03] MEDS: INSULIN LISPRO 100 UNIT/ML SUBCUT SCH ×4 (10:12→21:17)
[2021-10-03] MEDS: FUROSEMIDE 40 MG/4 ML VIAL IV SCH (13:06)
[2021-10-03] MEDS: MENTHOL/ZINC OXIDE OINT 71 GM JAR TOP SCH ×2 (14:25→23:30)
[2021-10-03] MEDS: PANTOPRAZOLE 40 MG VIAL IV SCH (14:32)
[2021-10-03] MEDS: ENOXAPARIN 30 MG/0.3 ML SYRINGE SUBCUT SCH (17:12)
[2021-10-03] MEDS: ROSUVASTATIN 20 MG TABLET PO SCH (21:15)
[2021-10-03] MEDS: METOPROLOL SUCCINATE XL 50 MG TABLET PO SCH (21:15)
[2021-10-03] MEDS: INSULIN GLARGINE 100 UNIT/ML SUBCUT SCH (21:16)
[2021-10-04] MEDS: ALBUTEROL/IPRATROPIUM 3 ML NEB RESP TX SCH ×3 (03:25→10:33)
[2021-10-04 05:57] LABS: Basophils % 0.1 % (0.0-0.8); Hematocrit 32.3 VOL% (35.7-47.0); Hemoglobin 10.6 GM/DL (12.0-16.0); Immature Granulocytes % 1.4 %; Immature Granulocytes Absolute 0.26 #; Lymphocytes # 0.6 10*3/uL (1.4-4.0); Lymphocytes % 3.1 % (21.3-54.2); Mean Corpuscular HGB Conc 32.8 GM/DL (32-36); Mean Platelet Volume 11.2 FL (9.6-12.0); Monocytes % 3.8 % (1.7-12.7); Neutrophils % 91.6 % (38.7-73.9); Platelet Count 186 T/CUMM (130-400); Red Blood Count 3.55 MC/CUMM (3.8-5.5); Red Cell Distribution Width 15.9 % (9.3-17.3); White Blood Count 18.3 T/CUMM (4-12)
[2021-10-04 06:18] LABS: PT Patient Result 49.6 SECS (10.5-12.0)
[2021-10-04 06:20] LABS: Lymphocytes 2 % (20-55); Segmented Neutrophils 97 % (50-85); Total Cells Counted 100
[2021-10-04 06:21] LABS: Hypochromia Slight; Microcytosis Slight; Platelet Estimate Adequate
[2021-10-04 06:27] LABS: Alanine Aminotransferase 31 U/L (13-56); Albumin 2.4 G/DL (3.4-5.0); Alkaline Phosphatase 48 U/L (45-117); Aspartate Amino Transferase 43 U/L (0-37); Bilirubin,Total < 0.39 MG/DL (0.20-1.00); Blood Urea Nitrogen 144 MG/DL (7-18); Calcium 7.9 MG/DL (8.5-10.1); Carbon Dioxide 13 MMOL/L (21-32); Estimated Glom Filtration Rate 6 ML/MIN; Glucose 159 MG/DL (74-106); Osmolality,Calculated 324.7 MOS/KG (273-304); Potassium 3.7 MMOL/L (3.5-5.1); Sodium 138 MMOL/L (136-145); Total Protein 6.8 G/DL (6.4-8.2)
[2021-10-04] MEDS: methylPREDNISolone SOD SUC 40 MG/1 ML VIAL IV SCH (09:26)
[2021-10-04] MEDS: PANTOPRAZOLE 40 MG VIAL IV SCH (09:31)
[2021-10-04] MEDS: CLARITHROMYCIN 500 MG TABLET PO SCH (09:45)
[2021-10-04] MEDS: AMOXICILLIN 500 MG CAPSULE PO SCH (09:45)
[2021-10-04] MEDS: MEMANTINE 5 MG TABLET PO SCH ×2 (09:45→21:10)
[2021-10-04] MEDS: MENTHOL/ZINC OXIDE OINT 71 GM JAR TOP SCH ×2 (09:46→21:09)
[2021-10-04] MEDS: INSULIN LISPRO 100 UNIT/ML SUBCUT SCH ×4 (09:46→22:09)
[2021-10-04] MEDS ORDERED: SODIUM BICARB INJ 150 MEQ in DEXTROSE 5% 1,000 ML IV SCH (12:30)
[2021-10-04] MEDS ORDERED: ALBUTEROL/IPRATROPIUM 3 ML NEB RESP TX PRN (13:22)
[2021-10-04] MEDS: ENOXAPARIN 30 MG/0.3 ML SYRINGE SUBCUT SCH (17:16)
[2021-10-04] MEDS: ROSUVASTATIN 20 MG TABLET PO SCH (21:10)
[2021-10-04] MEDS: METOPROLOL SUCCINATE XL 50 MG TABLET PO SCH (21:10)
[2021-10-04] MEDS: INSULIN GLARGINE 100 UNIT/ML SUBCUT SCH (22:08)
[2021-10-05 05:35] LABS: Basophils % 0.1 % (0.0-0.8); Hematocrit 34.8 VOL% (35.7-47.0); Hemoglobin 11.5 GM/DL (12.0-16.0); Immature Granulocytes % 1.3 %; Immature Granulocytes Absolute 0.22 #; Lymphocytes # 0.6 10*3/uL (1.4-4.0); Lymphocytes % 3.4 % (21.3-54.2); Mean Corpuscular Volume 91.1 FL (87-102); Mean Platelet Volume 11.3 FL (9.6-12.0); Monocytes % 5.4 % (1.7-12.7); NRBC # 0.03 10*3/uL; Neutrophils % 89.8 % (38.7-73.9); Platelet Count 200 T/CUMM (130-400); Red Blood Count 3.82 MC/CUMM (3.8-5.5); Red Cell Distribution Width 16.1 % (9.3-17.3); White Blood Count 16.4 T/CUMM (4-12)
[2021-10-05 05:46] LABS: INR 3.4; PT Patient Result 35.2 SECS (10.5-12.0)
[2021-10-05 05:49] LABS: Alanine Aminotransferase 37 U/L (13-56); Albumin 2.5 G/DL (3.4-5.0); Alkaline Phosphatase 51 U/L (45-117); Aspartate Amino Transferase 46 U/L (0-37); Bilirubin,Total < 0.39 MG/DL (0.20-1.00); Blood Urea Nitrogen 142 MG/DL (7-18); Calcium 7.9 MG/DL (8.5-10.1); Carbon Dioxide 16 MMOL/L (21-32); Estimated Glom Filtration Rate 6 ML/MIN; Glucose 177 MG/DL (74-106); Osmolality,Calculated 322.8 MOS/KG (273-304); Potassium 3.4 MMOL/L (3.5-5.1); Sodium 137 MMOL/L (136-145)
[2021-10-05 05:58] LABS: Hypochromia Slight; Lymphocytes 7 % (20-55); Microcytosis Slight; Platelet Estimate Adequate; Segmented Neutrophils 92 % (50-85); Total Cells Counted 100
[2021-10-05] MEDS: methylPREDNISolone SOD SUC 40 MG/1 ML VIAL IV SCH (08:44)
[2021-10-05] MEDS: PANTOPRAZOLE 40 MG VIAL IV SCH (08:47)
[2021-10-05] MEDS: POTASSIUM CHLORIDE 20 MEQ TABLET PO PRN ×3 (08:48→14:59)
[2021-10-05] MEDS: INSULIN LISPRO 100 UNIT/ML SUBCUT SCH ×4 (08:48→20:17)
[2021-10-05] MEDS: MEMANTINE 5 MG TABLET PO SCH ×2 (08:48→20:17)
[2021-10-05] MEDS: MENTHOL/ZINC OXIDE OINT 71 GM JAR TOP SCH ×2 (08:48→20:16)
[2021-10-05] MEDS ORDERED: TUBERCULIN SKIN TEST 0.1 ML SYRINGE INTRADERM ONE (10:34)
[2021-10-05] MEDS: POLYETHYLENE GLYCOL POWDER 17 GM PACK PO PRN (13:01)
[2021-10-05] MEDS: ENOXAPARIN 30 MG/0.3 ML SYRINGE SUBCUT SCH (14:59)
[2021-10-05] MEDS: METOPROLOL SUCCINATE XL 50 MG TABLET PO SCH (18:43)
[2021-10-05] MEDS: ROSUVASTATIN 20 MG TABLET PO SCH (20:17)
[2021-10-05] MEDS: INSULIN GLARGINE 100 UNIT/ML SUBCUT SCH (20:17)
[2021-10-06 06:19] LABS: Basophils % 0.1 % (0.0-0.8); Hematocrit 35.2 VOL% (35.7-47.0); Hemoglobin 11.7 GM/DL (12.0-16.0); Immature Granulocytes % 1.4 %; Lymphocytes # 0.7 10*3/uL (1.4-4.0); Lymphocytes % 5.1 % (21.3-54.2); Mean Corpuscular HGB Conc 33.2 GM/DL (32-36); Mean Platelet Volume 10.9 FL (9.6-12.0); Monocytes % 9.1 % (1.7-12.7); NRBC # 0.03 10*3/uL; Neutrophils % 84.3 % (38.7-73.9); Platelet Count 217 T/CUMM (130-400); Red Blood Count 3.91 MC/CUMM (3.8-5.5); Red Cell Distribution Width 16.1 % (9.3-17.3); White Blood Count 14.2 T/CUMM (4-12)
[2021-10-06 06:36] LABS: Alanine Aminotransferase 44 U/L (13-56); Albumin 2.4 G/DL (3.4-5.0); Alkaline Phosphatase 50 U/L (45-117); Aspartate Amino Transferase 45 U/L (0-37); Bilirubin,Total < 0.39 MG/DL (0.20-1.00); Blood Urea Nitrogen 146 MG/DL (7-18); Calcium 7.6 MG/DL (8.5-10.1); Carbon Dioxide 17 MMOL/L (21-32); Estimated Glom Filtration Rate 6 ML/MIN; Glucose 175 MG/DL (74-106); Osmolality,Calculated 330.4 MOS/KG (273-304); Potassium 4.6 MMOL/L (3.5-5.1); Sodium 140 MMOL/L (136-145); Total Protein 6.6 G/DL (6.4-8.2)
[2021-10-06 06:57] LABS: INR 1.9; PT Patient Result 20.7 SECS (10.5-12.0)
[2021-10-06] MEDS: INSULIN LISPRO 100 UNIT/ML SUBCUT SCH ×4 (08:52→21:42)
[2021-10-06] MEDS: MENTHOL/ZINC OXIDE OINT 71 GM JAR TOP SCH ×2 (08:56→20:48)
[2021-10-06] MEDS: methylPREDNISolone SOD SUC 40 MG/1 ML VIAL IV SCH (08:56)
[2021-10-06] MEDS: PANTOPRAZOLE 40 MG VIAL IV SCH (08:57)
[2021-10-06] MEDS: POLYETHYLENE GLYCOL POWDER 17 GM PACK PO PRN (08:57)
[2021-10-06] MEDS: MEMANTINE 5 MG TABLET PO SCH ×2 (08:57→20:48)
[2021-10-06] MEDS: ENOXAPARIN 30 MG/0.3 ML SYRINGE SUBCUT SCH (15:52)
[2021-10-06] MEDS: METOPROLOL SUCCINATE XL 50 MG TABLET PO SCH (18:45)
[2021-10-06] MEDS: ROSUVASTATIN 20 MG TABLET PO SCH (20:48)
[2021-10-06] MEDS: INSULIN GLARGINE 100 UNIT/ML SUBCUT SCH (21:42)
[2021-10-07 05:46] LABS: Basophils % 0.1 % (0.0-0.8); Immature Granulocytes Absolute 0.31 #; Lymphocytes # 1.1 10*3/uL (1.4-4.0); Mean Corpuscular HGB Conc 32.4 GM/DL (32-36); Mean Platelet Volume 11.2 FL (9.6-12.0); Monocytes % 10.1 % (1.7-12.7); NRBC # 0.04 10*3/uL; Neutrophils % 80.8 % (38.7-73.9); Platelet Count 221 T/CUMM (130-400); Red Blood Count 4.02 MC/CUMM (3.8-5.5); Red Cell Distribution Width 16.4 % (9.3-17.3); White Blood Count 15.4 T/CUMM (4-12)
[2021-10-07 05:56] LABS: INR 1.4; PT Patient Result 15.2 SECS (10.5-12.0)
[2021-10-07 06:12] LABS: Albumin 2.6 G/DL (3.4-5.0); Bilirubin,Total 0.4 MG/DL (0.20-1.00); Calcium 8.1 MG/DL (8.5-10.1); Osmolality,Calculated 324.3 MOS/KG (273-304); Potassium 4.5 MMOL/L (3.5-5.1); Total Protein 6.8 G/DL (6.4-8.2)
[2021-10-07] MEDS: INSULIN LISPRO 100 UNIT/ML SUBCUT SCH ×4 (07:52→20:13)
[2021-10-07] MEDS: methylPREDNISolone SOD SUC 40 MG/1 ML VIAL IV SCH (09:23)
[2021-10-07] MEDS: MENTHOL/ZINC OXIDE OINT 71 GM JAR TOP SCH ×2 (09:23→20:12)
[2021-10-07] MEDS: MEMANTINE 5 MG TABLET PO SCH ×2 (09:25→20:12)
[2021-10-07] MEDS: PANTOPRAZOLE 40 MG VIAL IV SCH (09:25)
[2021-10-07] MEDS: POLYETHYLENE GLYCOL POWDER 17 GM PACK PO PRN (09:25)
[2021-10-07] MEDS: ENOXAPARIN 30 MG/0.3 ML SYRINGE SUBCUT SCH (16:32)
[2021-10-07] MEDS ORDERED: ZALEPLON 5 MG CAPSULE PO PRN (20:09)
[2021-10-07] MEDS ORDERED: MELATONIN 3 MG TABLET PO PRN (20:09)
[2021-10-07] MEDS: METOPROLOL SUCCINATE XL 50 MG TABLET PO SCH (20:12)
[2021-10-07] MEDS: ROSUVASTATIN 20 MG TABLET PO SCH (20:12)
[2021-10-07] MEDS: INSULIN GLARGINE 100 UNIT/ML SUBCUT SCH (20:13)
[2021-10-08 03:25] LABS: Basophils % 0.2 % (0.0-0.8); Hematocrit 35.8 VOL% (35.7-47.0); Hemoglobin 11.8 GM/DL (12.0-16.0); Immature Granulocytes % 1.6 %; Immature Granulocytes Absolute 0.21 #; Lymphocytes # 0.7 10*3/uL (1.4-4.0); Lymphocytes % 5.5 % (21.3-54.2); Mean Corpuscular Volume 91.1 FL (87-102); Mean Platelet Volume 11.2 FL (9.6-12.0); Monocytes % 8.8 % (1.7-12.7); NRBC # 0.04 10*3/uL; Neutrophils % 83.9 % (38.7-73.9); Platelet Count 189 T/CUMM (130-400); Red Blood Count 3.93 MC/CUMM (3.8-5.5); Red Cell Distribution Width 16.2 % (9.3-17.3); White Blood Count 13.2 T/CUMM (4-12)
[2021-10-08 03:33] LABS: INR 1.2; PT Patient Result 13.5 SECS (10.5-12.0)
[2021-10-08 03:42] LABS: Albumin 2.5 G/DL (3.4-5.0); Bilirubin,Total 0.8 MG/DL (0.20-1.00); Calcium 7.8 MG/DL (8.5-10.1); Osmolality,Calculated 327.4 MOS/KG (273-304); Potassium 5.6 MMOL/L (3.5-5.1); Total Protein 6.5 G/DL (6.4-8.2)
[2021-10-08] MEDS: INSULIN LISPRO 100 UNIT/ML SUBCUT SCH ×4 (07:16→20:53)
[2021-10-08] MEDS: PANTOPRAZOLE 40 MG VIAL IV SCH (09:36)
[2021-10-08] MEDS: MEMANTINE 5 MG TABLET PO SCH ×2 (09:36→21:33)
[2021-10-08] MEDS: methylPREDNISolone SOD SUC 40 MG/1 ML VIAL IV SCH (09:37)
[2021-10-08] MEDS: MENTHOL/ZINC OXIDE OINT 71 GM JAR TOP SCH ×2 (09:41→21:40)
[2021-10-08] MEDS: ENOXAPARIN 30 MG/0.3 ML SYRINGE SUBCUT SCH (15:58)
[2021-10-08] MEDS ORDERED: WARFARIN 3 MG TABLET PO SCH (18:00)
[2021-10-08] MEDS ORDERED: METOPROLOL SUCCINATE XL 50 MG TABLET PO SCH (21:00)
[2021-10-08] MEDS: SODIUM BICARBONATE 650 MG TABLET PO SCH (21:32)
[2021-10-08] MEDS: ROSUVASTATIN 20 MG TABLET PO SCH (21:34)
[2021-10-08] MEDS: INSULIN GLARGINE 100 UNIT/ML SUBCUT SCH (21:36)
[2021-10-09 05:11] LABS: Basophils % 0.2 % (0.0-0.8); Hematocrit 36.7 VOL% (35.7-47.0); Hemoglobin 11.9 GM/DL (12.0-16.0); Immature Granulocytes % 1.5 %; Immature Granulocytes Absolute 0.24 #; Lymphocytes # 0.9 10*3/uL (1.4-4.0); Lymphocytes % 5.7 % (21.3-54.2); Mean Corpuscular HGB Conc 32.4 GM/DL (32-36); Mean Corpuscular Volume 92.7 FL (87-102); Mean Platelet Volume 11.6 FL (9.6-12.0); Monocytes % 11.6 % (1.7-12.7); NRBC # 0.08 10*3/uL; Platelet Count 199 T/CUMM (130-400); Red Blood Count 3.96 MC/CUMM (3.8-5.5); Red Cell Distribution Width 16.3 % (9.3-17.3); White Blood Count 15.6 T/CUMM (4-12)
[2021-10-09 05:23] LABS: INR 1.1; PT Patient Result 12.4 SECS (10.5-12.0)
[2021-10-09 05:32] LABS: Albumin 2.6 G/DL (3.4-5.0); Bilirubin,Total 0.5 MG/DL (0.20-1.00); Calcium 8.1 MG/DL (8.5-10.1); Osmolality,Calculated 323.3 MOS/KG (273-304); Potassium 5.2 MMOL/L (3.5-5.1); Total Protein 6.7 G/DL (6.4-8.2)
[2021-10-09] MEDS: INSULIN LISPRO 100 UNIT/ML SUBCUT SCH ×2 (08:10→14:05)
[2021-10-09] MEDS ORDERED: methylPREDNISolone SOD SUC 40 MG/1 ML VIAL IV SCH (09:00)
[2021-10-09] MEDS: MEMANTINE 5 MG TABLET PO SCH (09:28)
[2021-10-09] MEDS: SODIUM BICARBONATE 650 MG TABLET PO SCH (09:29)
[2021-10-09] MEDS: MENTHOL/ZINC OXIDE OINT 71 GM JAR TOP SCH (10:14)
[2021-10-09] MEDS: PANTOPRAZOLE 40 MG VIAL IV SCH (10:39)
[2021-10-09 12:10] VITALS: BP 102/70
== END 2021-10-09 14:30 | disposition swing bed (61) | DRG 291 ==
LOC: EDUNIT# → EDBD → N.ED 00:03 → N.EDINP 02:36 → N.TELES 05:12
PROVIDERS: ADMIT Family Medicine; ATTEND Family Medicine

== ENCOUNTER 2021-11-02 01:59 | Inpatient (IN) ==
[2021-11-02] MEDS ORDERED: ONDANSETRON 4 MG/2 ML VIAL IV STA (02:54)
[2021-11-02] MEDS ORDERED: FUROSEMIDE 100 MG/10 ML VIAL IV STA (02:54)
[2021-11-02] MEDS ORDERED: PHENYLEPHRINE DRIP 40 MG/250 ML PREMIX IV PRN (02:54)
[2021-11-02 03:15] LABS: Basophils % 0.1 % (0.0-0.8); Eosinophils % 0.1 % (0.00-10.9); Hematocrit 31.7 VOL% (35.7-47.0); Hemoglobin 11.2 GM/DL (12.0-16.0); Immature Granulocytes % 2.6 %; Lymphocytes # 0.5 10*3/uL (1.4-4.0); Lymphocytes % 3.5 % (21.3-54.2); Mean Corpuscular HGB Conc 35.3 GM/DL (32-36); Mean Corpuscular Volume 85.2 FL (87-102); Mean Platelet Volume 11.6 FL (9.6-12.0); Monocytes % 6.5 % (1.7-12.7); NRBC # 0.03 10*3/uL; Neutrophils % 87.2 % (38.7-73.9); Platelet Count 127 T/CUMM (130-400); Red Blood Count 3.72 MC/CUMM (3.8-5.5); White Blood Count 15.5 T/CUMM (4-12)
[2021-11-02 03:31] LABS: Alanine Aminotransferase 46 U/L (13-56); Albumin 1.4 G/DL (3.4-5.0); Alkaline Phosphatase 155 U/L (45-117); Aspartate Amino Transferase 52 U/L (0-37); Bilirubin,Total < 0.39 MG/DL (0.20-1.00); Blood Urea Nitrogen 130 MG/DL (7-18); Calcium 7.3 MG/DL (8.5-10.1); Carbon Dioxide 8 MMOL/L (21-32); Chloride 113 MMOL/L (98-107); Estimated Glom Filtration Rate 4 ML/MIN; Glucose 162 MG/DL (74-106); Osmolality,Calculated 320.7 MOS/KG (273-304); Potassium 3.4 MMOL/L (3.5-5.1); Sodium 138 MMOL/L (136-145); Total Protein 5.3 G/DL (6.4-8.2)
[2021-11-02 03:35] LABS: PT Patient Result 96.8 SECS (10.5-12.0)
[2021-11-02 03:39] LABS: INR 10.2
[2021-11-02] MEDS ORDERED: LACTATED RINGERS 250 ML IV ONE (03:42)
[2021-11-02] MEDS ORDERED: MAGNESIUM SULF RIDER 2 GM/50 ML PREMIX IV STA (03:42)
[2021-11-02 03:52] LABS: RBC,Urine 154 /HPF (0-4); Squamous Epithelial Cell,Urine Occasional /HPF (0-10)
[2021-11-02 03:53] LABS: Bilirubin,Urine Negative (Negative); Blood, Urine Large mg/dL (Negative); Glucose,Urine (UA) Negative (Negative); Ketones,Urine Negative (Negative); Nitrite,Urine Negative (Negative); Protein,Urine >=300 mg/dL (Negative); Urine Appearance Cloudy (Clear); Urine Color Yellow (Yellow); Urine Urobilinogen 0.2 eU/dL (<2.0); Urine pH 5.5 (4.5-8.0)
[2021-11-02] MEDS ORDERED: cefTRIAXone 1,000 MG in SODIUM CHLORIDE 0.9% 100 ML IV STA (04:03)
[2021-11-02] MEDS ORDERED: PHYTONADIONE 10 MG/1 ML AMP SUBCUT STA (04:12)
[2021-11-02 04:24] LABS: Burr Cells Slight; Eosinophils 2 % (0-10); Lymphocytes 3 % (20-55); Ovalocytes Slight; Platelet Estimate Normal; Total Cells Counted 100
[2021-11-02] MEDS ORDERED: ACETAMINOPHEN 325 MG TABLET PO PRN (05:30)
[2021-11-02] MEDS ORDERED: SODIUM CHLORIDE 0.9% 1,000 ML IV SCH (05:30)
[2021-11-02] MEDS ORDERED: ALBUTEROL/IPRATROPIUM 3 ML NEB RESP TX PRN (05:30)
[2021-11-02] MEDS ORDERED: MEPERIDINE 25 MG/1 ML VIAL IM PRN (05:30)
[2021-11-02] MEDS ORDERED: ONDANSETRON 4 MG/2 ML VIAL IV PRN (05:30)
[2021-11-02] MEDS ORDERED: DEXTROSE 10% 250 ML BAG IV PRN (05:30)
[2021-11-02] MEDS ORDERED: GLUCAGON 1 MG VIAL IM PRN (05:30)
[2021-11-02] MEDS: INSULIN REGULAR 100 UNIT/ML SUBCUT SCH ×3 (06:03→17:40)
[2021-11-02] MEDS: DOCUSATE SODIUM 100 MG CAPSULE PO SCH ×2 (09:00→21:51)
[2021-11-02] MEDS: PANTOPRAZOLE 40 MG VIAL IV SCH (09:00)
[2021-11-02] MEDS ORDERED: POTASSIUM CHLORIDE RIDER 10 MEQ/100 ML PREMIX IV PRN (10:39)
[2021-11-02] MEDS ORDERED: DEXTROSE 10% 25 GM/250 ML BAG IV PRN (10:39)
[2021-11-02] MEDS ORDERED: MAGNESIUM SULF RIDER 4 GM/100 ML PREMIX IV PRN (10:39)
[2021-11-02] MEDS ORDERED: MAGNESIUM SULF RIDER 2 GM/50 ML PREMIX IV PRN (10:39)
[2021-11-02] MEDS: SODIUM BICARB INJ 150 MEQ in DEXTROSE 5% 850 ML IV SCH (17:03)
[2021-11-03] MEDS: INSULIN REGULAR 100 UNIT/ML SUBCUT SCH ×4 (00:42→19:10)
[2021-11-03] MEDS ORDERED: MEPERIDINE 50 MG/1 ML VIAL IV PRN (01:56)
[2021-11-03 05:27] LABS: Basophils % 0.1 % (0.0-0.8); Eosinophils # 0.1 10*3/uL (0.0-0.87); Eosinophils % 0.3 % (0.00-10.9); Hematocrit 26.5 VOL% (35.7-47.0); Hemoglobin 9.3 GM/DL (12.0-16.0); Immature Granulocytes % 2.3 %; Immature Granulocytes Absolute 0.44 #; Lymphocytes # 0.8 10*3/uL (1.4-4.0); Lymphocytes % 4.2 % (21.3-54.2); Mean Corpuscular HGB Conc 35.1 GM/DL (32-36); Mean Corpuscular Volume 85.8 FL (87-102); Mean Platelet Volume 12.6 FL (9.6-12.0); Monocytes # 1.5 10*3/uL (0.11-0.8); Monocytes % 7.9 % (1.7-12.7); NRBC # 0.02 10*3/uL; Neutrophils % 85.2 % (38.7-73.9); Platelet Count 123 T/CUMM (130-400); Red Blood Count 3.09 MC/CUMM (3.8-5.5); Red Cell Distribution Width 18.2 % (9.3-17.3); White Blood Count 19.4 T/CUMM (4-12)
[2021-11-03 05:33] LABS: PT Patient Result 87.5 SECS (10.5-12.0)
[2021-11-03 05:36] LABS: INR 9.1
[2021-11-03 05:37] LABS: Alanine Aminotransferase 40 U/L (13-56); Albumin 1.3 G/DL (3.4-5.0); Alkaline Phosphatase 150 U/L (45-117); Aspartate Amino Transferase 46 U/L (0-37); Bilirubin,Direct < 0.100 MG/DL (0.0-0.20); Bilirubin,Indirect 0.3 MG/DL (0.0-1.0); Bilirubin,Total < 0.39 MG/DL (0.20-1.00); Blood Urea Nitrogen 137 MG/DL (7-18); Carbon Dioxide 10 MMOL/L (21-32); Chloride 110 MMOL/L (98-107); Estimated Glom Filtration Rate 4 ML/MIN; Glucose 224 MG/DL (74-106); Osmolality,Calculated 325.7 MOS/KG (273-304); Sodium 138 MMOL/L (136-145); Total Protein 4.9 G/DL (6.4-8.2)
[2021-11-03 05:44] LABS: Band Neutrophils 1 % (0-10); Eosinophils 1 % (0-10); Hypochromia Slight; Lymphocytes 4 % (20-55); Microcytosis Slight; Platelet Estimate Normal; Total Cells Counted 100
[2021-11-03 05:49] LABS: Alanine Aminotransferase 39 U/L (13-56); Albumin 1.3 G/DL (3.4-5.0); Alkaline Phosphatase 154 U/L (45-117); Aspartate Amino Transferase 43 U/L (0-37); Bilirubin,Total < 0.39 MG/DL (0.20-1.00); Blood Urea Nitrogen 133 MG/DL (7-18); Calcium 7.8 MG/DL (8.5-10.1); Carbon Dioxide 10 MMOL/L (21-32); Chloride 107 MMOL/L (98-107); Estimated Glom Filtration Rate 4 ML/MIN; Glucose 197 MG/DL (74-106); Osmolality,Calculated 317.1 MOS/KG (273-304); Potassium 3.2 MMOL/L (3.5-5.1); Sodium 135 MMOL/L (136-145)
[2021-11-03] MEDS: cefTRIAXone 1,000 MG in SODIUM CHLORIDE 0.9% 100 ML IV SCH (06:42)
[2021-11-03] MEDS ORDERED: POTASSIUM CHLORIDE INJ 50 MEQ in SODIUM CHLORIDE 0.9% 500 ML IV ONE (10:00)
[2021-11-03] MEDS: PANTOPRAZOLE 40 MG VIAL IV SCH (10:21)
[2021-11-03] MEDS: DOCUSATE SODIUM 100 MG CAPSULE PO SCH ×2 (10:21→23:02)
[2021-11-03] MEDS: MORPHINE 2 MG/1 ML SYRINGE IV PRN ×2 (12:43→22:58)
[2021-11-04] MEDS: INSULIN REGULAR 100 UNIT/ML SUBCUT SCH ×2 (00:20→06:25)
[2021-11-04] MEDS: LORazepam 2 MG/1 ML VIAL IV PRN ×2 (00:34→16:34)
[2021-11-04 05:02] LABS: Basophils % 0.1 % (0.0-0.8); Eosinophils # 0.1 10*3/uL (0.0-0.87); Eosinophils % 0.3 % (0.00-10.9); Hematocrit 24.5 VOL% (35.7-47.0); Hemoglobin 8.8 GM/DL (12.0-16.0); Immature Granulocytes Absolute 0.68 #; Lymphocytes # 1.3 10*3/uL (1.4-4.0); Lymphocytes % 5.6 % (21.3-54.2); Mean Corpuscular HGB Conc 35.9 GM/DL (32-36); Mean Corpuscular Volume 85.1 FL (87-102); Mean Platelet Volume 11.7 FL (9.6-12.0); Monocytes # 2.6 10*3/uL (0.11-0.8); Monocytes % 11.7 % (1.7-12.7); Neutrophils % 79.3 % (38.7-73.9); Red Blood Count 2.88 MC/CUMM (3.8-5.5); Red Cell Distribution Width 18.3 % (9.3-17.3); White Blood Count 22.5 T/CUMM (4-12)
[2021-11-04 05:05] LABS: Platelet Count 94 T/CUMM (130-400)
[2021-11-04 05:21] LABS: Calcium 7.8 MG/DL (8.5-10.1); Osmolality,Calculated 324.4 MOS/KG (273-304); Potassium 3.8 MMOL/L (3.5-5.1)
[2021-11-04 05:32] LABS: PT Patient Result 66.2 SECS (10.5-12.0)
[2021-11-04 05:33] LABS: Acanthocytes Few; Lymphocytes 6 % (20-55); Nucleated Red Blood Cells 1 (0-5); Total Cells Counted 100
[2021-11-04 05:34] LABS: INR 6.8; Microcytosis 1+; Ovalocytes Few; Platelet Estimate Decreased; Polychromasia Slight; Target Cells Slight
[2021-11-04] MEDS: cefTRIAXone 1,000 MG in SODIUM CHLORIDE 0.9% 100 ML IV SCH (06:25)
[2021-11-04] MEDS: DOCUSATE SODIUM 100 MG CAPSULE PO SCH (09:42)
[2021-11-04] MEDS: PANTOPRAZOLE 40 MG VIAL IV SCH (09:42)
[2021-11-04] MEDS: SODIUM BICARB INJ 150 MEQ in DEXTROSE 5% 850 ML IV SCH (09:43)
[2021-11-04 20:17] VITALS: BP 104/64
[2021-11-04] MEDS: MORPHINE 2 MG/1 ML SYRINGE IV PRN (20:46)
[2021-11-05] MEDS: MORPHINE 2 MG/1 ML SYRINGE IV PRN ×2 (04:07→11:56)
[2021-11-05] MEDS ORDERED: ZINC OXIDE PASTE 113 GM TUBE TOP SCH (14:30)
[2021-11-05] MEDS: LORazepam 2 MG/1 ML VIAL IV PRN (15:11)
== END 2021-11-05 16:30 | disposition hospice, inpatient (51) | DRG 291 ==
LOC: EDUNIT# → EDBD → N.ED 01:59 → N.EDINP 04:19 → N.5E 12:41
PROVIDERS: ADMIT Family Medicine; ATTEND Family Medicine

== ENCOUNTER 2021-11-05 16:30 | Inpatient (IN) ==
[2021-11-05] MEDS: MORPHINE 2 MG/1 ML SYRINGE IV SCH (20:35)
[2021-11-05] MEDS: LORazepam 2 MG/1 ML VIAL IV SCH (22:40)
[2021-11-06] MEDS: MORPHINE 2 MG/1 ML SYRINGE IV SCH ×2 (00:40→04:33)
[2021-11-06 01:49] VITALS: BP 107/44
[2021-11-06] MEDS: LORazepam 2 MG/1 ML VIAL IV SCH ×2 (02:29→06:29)
== END 2021-11-06 07:12 | disposition expired | DRG 951 ==
LOC: N.5E 16:30
PROVIDERS: ADMIT Internal Medicine; ATTEND Internal Medicine